=== PATIENT | male | born 1955 | race Caucasian/White ===

== ENCOUNTER → 2020-12-16 09:52 | Outpatient (CLI) | payer OTHER, SELFPAY ==
--- NOTE | 2020-12-16 09:56 | DI.RAD.S_ITS ---
PROCEDURE: XR CERVICAL SPINE 4V OR 5V INDICATIONS: UPDATE IMAGING TECHNIQUE: 5 views of the cervical spine acquired. COMPARISON: None. FINDINGS: Bones: No fractures or dislocations to the C7 level. Oblique images demonstrate no bony foraminal stenoses. There are multilevel degenerative changes. C4-5, C5-6, and C6-7 have anterior osteophytes and foraminal narrowing on oblique views. Soft tissues: No prevertebral soft tissue swelling. IMPRESSION: Degenerative changes with disc disease at C4-5, C5-6, and C6-7. Dictated by: Efe Lugo M.D. on 12/16/2020 at 11:01 Approved by: Efe Lugo M.D. on 12/16/2020 at 11:04
== END ==
PROVIDERS: PCP Family Medicine; Referring Provider Physical Medicine & Rehabilitation; Visit Provider Physical Medicine & Rehabilitation
DX: M54.2 Cervicalgia (principal); M47.812 Spondylosis without myelopathy or radiculopathy, cervical region; M47.26 Other spondylosis with radiculopathy, lumbar region; Z87.828 Personal history of other (healed) physical injury and trauma
CPT/HCPCS: 72050; 99215

== ENCOUNTER → 2021-01-03 15:42 | Outpatient (CLI) | payer OTHER, SELFPAY ==
--- NOTE | 2021-01-03 15:43 | DI.MRI.S_ITS ---
PROCEDURE: MR CERVICAL SPINE WO CON INDICATIONS: Neck pain TECHNIQUE: Noncontrast sagittal T1 spin echo and T2 fast spin echo, sagittal STIR, foraminal oblique sagittal T2 fast spin echo, and axial gradient echo or T2 fast spin echo through the cervical spine. COMPARISON: None. FINDINGS: Image quality: Excellent. Alignment and Curvature: There is loss of normal cervical lordosis. There is mild, grade 1 retrolisthesis of C3 on C4, C4 on C5, and C5 on C6. Bone Marrow: Marrow demonstrates normal overall signal. There is mild reactive signal within the endplates adjacent to the C2-C3, C3-C4, C4-C5, C5-C6, and C6-C7 intervertebral discs. Spinal Cord: Visualized spinal cord has normal size and signal. No cerebellar tonsillar herniation. Paraspinous Soft Tissues: No paravertebral masses. Prevertebral soft tissues are normal in thickness. C2-C3: Moderate disc desiccation. Mild diffuse disc bulge. Mild facet and uncovertebral hypertrophy. Mild canal stenosis. Mild bilateral foraminal stenosis. C3-C4: Moderate disc height loss and desiccation. Congenital canal stenosis. Mild diffuse disc bulge with superimposed broad-based left paracentral and posterolateral protrusion. Mild facet and uncovertebral hypertrophy bilaterally. Severe canal stenosis. Mild cord flattening. Moderate right and severe left foraminal stenosis. Left C4 nerve root compression. C4-C5: Congenital canal stenosis. Moderate disc height loss and desiccation. Moderate diffuse disc bulge with superimposed central protrusion. Moderate facet and uncovertebral hypertrophy bilaterally. Severe canal stenosis. Mild cord flattening. Severe bilateral foraminal stenosis with bilateral C5 nerve root compression. C5-C6: Moderate disc height loss and desiccation. Mild diffuse disc bulge. Congenital canal stenosis. Moderate facet and uncovertebral hypertrophy bilaterally. Moderate to severe canal stenosis. Minimal anterior cord flattening. Moderate left and severe right foraminal stenosis. Right C6 nerve root compression. C6-C7: Moderate disc height loss and desiccation. Mild diffuse disc bulge with superimposed broad-based left posterolateral broad-based protrusion. Mild facet and uncovertebral hypertrophy bilaterally. Moderate canal stenosis. Severe left and mild right foraminal stenosis. Left C7 nerve root compression. C7-T1: Mild disc height loss and desiccation. Mild facet and uncovertebral hypertrophy. No significant canal, or foraminal stenosis. IMPRESSION: 1. Diffuse congenital canal stenosis with superimposed disc and facet disease, as well as uncovertebral hypertrophy. 2. Multilevel canal stenoses, worst at C3-C4, C4-C5, and C5-C6, where there is associated cord flattening. 3. Multilevel foraminal stenoses, worst at C3-C4, C4-C5, C5-C6, and C6-C7 where there is associated intraforaminal nerve root compression. Recommend correlation with clinical symptoms to ascertain relevance of these findings. Dictated by: Avery Morris M.D. on 01/03/2021 at 16:59 Approved by: Avery Morris M.D. on 01/03/2021 at 17:03
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
== END ==
PROVIDERS: PCP Family Medicine; Referring Provider Physical Medicine & Rehabilitation; Visit Provider Physical Medicine & Rehabilitation
DX: M48.02 Spinal stenosis, cervical region (principal); M50.11 Cervical disc disorder with radiculopathy, high cervical region; M51.16 Intervertebral disc disorders with radiculopathy, lumbar region; M48.061 Spinal stenosis, lumbar region without neurogenic claudication; E88.2 Lipomatosis, not elsewhere classified
CPT/HCPCS: 72141; 72148

== ENCOUNTER → 2021-02-24 14:03 | Outpatient (CLI) | payer OTHER, SELFPAY ==
[2021-02-24 16:34] LABS: COVID19 -Nasal RAPID Negative (Negative)
== END ==
PROVIDERS: PCP Family Medicine; Visit Provider Physical Medicine & Rehabilitation
DX: Z20.822 Contact with and (suspected) exposure to COVID-19 (principal)
CPT/HCPCS: 87635; C9803

== ENCOUNTER 2021-02-25 14:45 | Outpatient (CLI) | payer OTHER, SELFPAY ==
[2021-02-25] VITALS (8 sets, daily range): BP systolic 94–164; BP diastolic 61–101; PULSE 80–98; RESP 12–18; TEMP 36.8; O2SAT 97–100
--- NOTE | 2021-02-25 14:46 | DI.RAD.S_ITS ---
PROCEDURE: PAIN L/S TRANSFORAMINAL INJECT INDICATIONS: SPONDYLOSIS COMPARISON: [facility], MR, MR LUMBAR SPINE WO CON, 01/03/2021, 16:20. FINDINGS: Fluoroscopic spot filming was performed to verify placement of spinal needles at the right L2-L3 level(s), as labeled on the films. Appropriate location(s) of the needle tip(s) was confirmed by injection of iodinated contrast. IMPRESSION: Intraprocedural examination within normal limits. Dictated by: Tulio Jesus M.D. on 02/25/2021 at 14:52 Approved by: Tulio Jesus M.D. on 02/25/2021 at 14:52
[2021-02-25] MEDS: fentaNYL 100 MCG/2 ML INJ 50 MCG IV (15:30)
[2021-02-25] MEDS: MIDAZOLAM 5 MG/5 ML VIAL IV (15:33)
[2021-02-25] MEDS: BETAMETHASONE 30 MG/5 ML MDV 6 MG INJ (15:34)
[2021-02-25] MEDS: DEXAMETHASONE 10 MG/ML VIAL 20 MG INJ (15:34)
[2021-02-25] MEDS: IOPAMIDOL 15 ML VIAL 3 ML INJ (15:35)
[2021-02-25] MEDS: BUPIVACAINE 0.25% (PF) VIAL 2 ML INJ (15:35)
--- NOTE | 2021-02-25 15:43 | P.PCN_ITS ---
Date/Time/Diagnoses Date of procedure: 02/25/21 Time of procedure: 15:43 Pre-procedure diagnosis: 1. FORAMINAL STENOSIS WITH LE SYMPTOMS Post-procedure diagnosis: same Procedure Notes Procedure: 1. FLUOROSCOPICALLY GUIDED CONTRAST CONTROLLED TRANSFORAMINAL EPIDURAL STEROID INJECTION - RIGHT L2/3 TFESI Indications: Camilo is referred by Dr. Arora for treatment of Foraminal Stenosis with right LE Symptoms Physician: Chavo Cisneros Total Fluoroscopy time (seconds): 7 Total sedation minutes: 11 Complications: none Procedure in detail & Post-procedure care: FINDINGS Foraminal Nerve Root Compression secondary to disc disease and facet hypertrophy DESCRIPTION OF PROCEDURE Following review of allergy and review of potential side effects and complications, including, but not necessarily limited to, infection, allergic reaction, local tissue breakdown, stroke, temporary or permanent nerve injury, paralysis, and possible , the patient indicated that the patient understood and agreed to proceed. An informed consent document was signed by the patient, witnessed by a nurse, and placed in the patient's chart. Additionally, other treatment options including medications, modalities, and physical therapy were reviewed with the patient. After review of previous anaesthesic history and IV conscious sedation the patient was deemed safe to proceed with today?s procedure with IV conscious sedation as ASA class II designation. Safety time-out was performed to confirm patient ID, procedure to be performed and site of procedure. IV sedation was accomplished with a combination of 3mg of Versed and 50mcg of Fentanyl was administered by the RN after DO order, titrated to patient comfort during the course of the procedure while the patient remained responsive to all verbal commands In the prone position following sterile prep and drape of the lumbar region, the right L2/3 posterior neuroforamen was identified fluoroscopically. The skin was anesthetized via a 25-gauge 1.5-inch needle with 1% lidocaine solution. At this point, a 25-gauge 3.5-inch spinal needle was atraumatically introduced and advanced under fluoroscopic guidance through the posterior right L2/3 ne uroforamen to approximately the anterior aspect of the canal. Depth was confirmed on lateral view. Following negative aspiration, injection of approximately 1.5 cc of Isovue 200 under live fluoroscopy in the AP view confirmed excellent flow along the nerve root, into the epidural space without vascular or intrathecal uptake observed Radiological data, including multiple fluoroscopic views of the lumbosacral spine, reveal a spinal needle at the right L2/3 posterior neuroforamen. Subsequent views show flow of contrast material flowing superiorly and inferiorly along the nerve root confirming epidural flow. Subsequently, a test dose of 1.5 cc of 1% lidocaine solution was administered and patient was observed for two minutes for signs or symptoms of complications, including abdominal pain, shortness of breath, bilateral upper or lower extremity weakness, nausea and vomiting, prior to steroid injection. At this point, a total of 3cc or 20mg of dexamethasone and 6mg of betamethasone was injected without incident. The patient tolerated the procedure well without signs or symptoms of complications prior to transfer to the recovery area continued monitoring without incident. The patient was then transferred to the recovery area where they were observed for an appropriate time after the injection. The patient reported a VAS score of 7 prior to the procedure and a post-procedure VAS of 0. POST OP INSTRUCTIONS The patient was provided a Pain Log to continue to record their response to the target-specific procedure prior to follow-up visit with their referring physician. Additionally, specific post-injection care instructions and a contact number to our office were provided if concerns arise regarding possible complications associated with the procedure are suspected.
== END 2021-02-25 16:07 | disposition home or self-care (01) ==
LOC: RAD 14:46
PROVIDERS: PCP Family Medicine; Referring Provider Physical Medicine & Rehabilitation; Visit Provider Physical Medicine & Rehabilitation
DX: M48.061 Spinal stenosis, lumbar region without neurogenic claudication (principal); M51.16 Intervertebral disc disorders with radiculopathy, lumbar region
CPT/HCPCS: 64483; 99152; J0702; J1100; J2250; J3010

== ENCOUNTER → 2021-03-31 12:36 | Outpatient (CLI) | payer OTHER, SELFPAY ==
--- NOTE | 2021-03-31 12:37 | DI.RAD.S_ITS ---
PROCEDURE: XR LUMBAR SPINE MIN 4V INDICATIONS: BACK PAIN TECHNIQUE: 5 views of the lumbar spine were acquired, including bilateral oblique views. COMPARISON: None. FINDINGS: Bones: No fracture. Multilevel spondylosis/endplate changes. Diffuse facet arthropathy. Moderate narrowing of the L5-S1 disc space. Remaining disc spaces appear preserved. Partially visualized mild lateral curvature of the spine. Soft tissues: Scattered vascular calcifications in the aorta. Oblique images: No pars defects. IMPRESSION: Lumbar spondylosis most pronounced at L5-S1. Dictated by: Abraham Colorado M.D. on 03/31/2021 at 13:27 Approved by: Abraham Colorado M.D. on 03/31/2021 at 13:29
== END ==
PROVIDERS: PCP Family Medicine; Referring Provider Physical Medicine & Rehabilitation; Visit Provider Physical Medicine & Rehabilitation
DX: M47.27 Other spondylosis with radiculopathy, lumbosacral region (principal); M51.16 Intervertebral disc disorders with radiculopathy, lumbar region; Z87.828 Personal history of other (healed) physical injury and trauma
CPT/HCPCS: 72110; 99214

== ENCOUNTER → 2021-04-28 11:37 | Outpatient (CLI) | payer OTHER, SELFPAY ==
[2021-04-28 13:57] LABS: COVID19 -Nasal RAPID Negative (Negative)
== END ==
PROVIDERS: PCP Family Medicine; Visit Provider Student in an Organized Health Care Education/Training Program
DX: Z01.812 Encounter for preprocedural laboratory examination (principal); Z20.822 Contact with and (suspected) exposure to COVID-19
CPT/HCPCS: 87635; C9803

== ENCOUNTER 2021-04-29 09:34 | Outpatient (CLI) | payer OTHER, SELFPAY ==
[2021-04-29] VITALS (9 sets, daily range): BP systolic 138–162; BP diastolic 72–101; PULSE 78–103; RESP 12–21; TEMP 36.6; O2SAT 97–100
--- NOTE | 2021-04-29 09:35 | DI.RAD.S_ITS ---
PROCEDURE: PAIN C/T INTERLAMINAR INJECT INDICATIONS: SPINAL STENOSIS COMPARISON: [facility], , PAIN L/S TRANSFORAMINAL INJECT, 02/25/2021, 15:35. FINDINGS: Fluoroscopic spot filming was performed to verify placement of a spinal needle at the C6-C7 level, as labeled on the films. Appropriate location of the needle tip was confirmed by injection of iodinated contrast. IMPRESSION: No significant intraprocedural abnormality. Dictated by: Tulio Jesus M.D. on 04/29/2021 at 10:29 Approved by: Tulio Jesus M.D. on 04/29/2021 at 10:29
[2021-04-29] MEDS: MIDAZOLAM 5 MG/5 ML VIAL IV (09:50)
[2021-04-29] MEDS: fentaNYL 100 MCG/2 ML INJ 50 MCG IV (09:50)
[2021-04-29] MEDS: IOPAMIDOL 15 ML VIAL 3 ML INJ (09:58)
[2021-04-29] MEDS: DEXAMETHASONE 10 MG/ML VIAL 30 MG INJ (09:58)
[2021-04-29] MEDS: BUPIVACAINE 0.25% (PF) VIAL 2 ML INJ (09:58)
--- NOTE | 2021-04-29 10:08 | P.PCN_ITS ---
Date/Time/Diagnoses Date of procedure: 04/29/21 Time of procedure: 10:08 Pre-procedure diagnosis: 1. CERVICAL STENOSIS, 2. CERVICAL HNP WITH UPPER EXTREMITY RADICULAR FEATURES Post-procedure diagnosis: same Procedure Notes Procedure: 1. FLUORSCOPICALLY GUIDED CONTRAST CONTROLLED INTERLAMINAR EPIDURAL STEROID INJECTION - C6/7 TL KAHLIL Indications: Camilo is referred for treatment of Cervical HNP with Upper Extremity Paresthesias. Physician: Chavo Cisneros Total Fluoroscopy time (seconds): 27 Total sedation minutes: 15 Complications: none Procedure in detail & Post-procedure care: FINDINGS Cervical Stenosis due to disc deterioration and nerve root irritation and nerve root irritation DESCRIPTION OF PROCEDURE Fluoroscopically guided, contrast-controlled C6/7 translaminar epidural steroid injection with conscious sedation. Following review of allergy and review of potential side effects and complications, including, but not necessarily limited to, infection, allergic r eaction, local tissue breakdown, temporary as well as permanent nerve injury, stroke, paralysis, and possible , the patient indicated that patient understood and agreed to proceed. An informed consent document was signed by the patient, witnessed by a nurse, and placed in the patient's chart. Additionally, other treatment options including modalities, medications, and physical therapy were reviewed with the patient. After review of previous anaesthesic history and IV conscious sedation the patient was deemed safe to proceed with today?s procedure with IV conscious sedation as ASA class II designation. Safety time-out was performed to confirm patient ID, procedure to be performed and site of procedure. IV sedation was accomplished with a combination of 3mg of Versed and 50mcg of Fentanyl administered by the RN after DO order, titrated to patient comfort during the course of the procedure while the patient remained responsive to all verbal commands. In the prone position, following sterile prep and drape of the cervical region, the C6/7 translaminar space was identified fluoroscopically. The skin was anesthetized via a 25-gauge 1.5-inch needle with 1% lidocaine solution. At this point, a 25-gauge, 2.5-inch short bevel spinal needle was atraumatically introduced and advanced under fluoroscopic guidance into epidural space at the C6/7 translaminar space. Depth was confirmed on lateral view. Radiological data, including multiple fluoroscopic views of the cervical spine, reveal a spinal needle at the C6/7 translaminar space. Lateral views then show placement of the needle in the epidural space. Subsequent views show contrast material flowing superiorly and inferiorly in the epidural space. DSA fluoroscopy with live contrast injection, once again, confirmed no vascular or intrathecal uptake. At this point, using loss of resistance technique with saline and air, the epidural space was entered. Following negative aspiration, injection of approximately 1.5 cc of Isovue-200 with live fluoroscopy in the AP view confirmed epidural flow in the epidural space without vascular or intrathecal uptake observed. Subsequently, a test dose of 1 cc of 1% lidocaine solution was injected and patient was observed for two minutes without signs or symptoms of complications, including abdominal pain, shortness of breath, bilateral upper or lower extremity weakness, nausea and vomiting, prior to steroid injection. At this point, 3cc or 30mg of dexamethasone was then injected without incident. The patient tolerated the procedure well without signs or symptoms of complications prior to being transferred to the recovery area for further monitoring, The patient was then transferred to the recovery area where they were observed for an appropriate period of time after the injection. The patient reported a VAS score of 6 prior to the procedure and a post-procedure VAS of 0. POST OP INSTRUCTIONS The patient was provided a Pain Log to continue to record their response to the target-specific procedure prior to follow-up visit with the referring provider. Additionally, specific post-injection care instructions and a contact number to our office were provided if concerns arise regarding possible complications associated with the procedure are suspected.
== END 2021-04-29 10:22 | disposition home or self-care (01) ==
PROVIDERS: Referring Provider Physical Medicine & Rehabilitation; Visit Provider Physical Medicine & Rehabilitation
DX: M54.12 Radiculopathy, cervical region (principal); M48.02 Spinal stenosis, cervical region
CPT/HCPCS: 62321; 99152; J1100; J2250; J3010

== ENCOUNTER → 2021-07-29 16:20 | Outpatient (CLI) | payer OTHER, SELFPAY ==
[2021-07-29 16:54] LABS: COVID19 -Nasal RAPID Negative (Negative)
== END ==
PROVIDERS: Visit Provider Physical Medicine & Rehabilitation
DX: Z20.822 Contact with and (suspected) exposure to COVID-19 (principal)
CPT/HCPCS: 87635; C9803

== ENCOUNTER 2021-07-31 08:44 | Outpatient (CLI) | payer OTHER, SELFPAY ==
[2021-07-31] VITALS (8 sets, daily range): BP systolic 141–169; BP diastolic 68–111; PULSE 58–95; RESP 10–21; TEMP 36.8–36.9; O2SAT 98–100
--- NOTE | 2021-07-31 08:44 | DI.RAD.S_ITS ---
PROCEDURE: PAIN C/T INTERLAMINAR INJECT INDICATIONS: SPINAL STENOSIS COMPARISON: [facility], , PAIN C/T INTERLAMINAR INJECT, 04/29/2021, 9:58. FINDINGS: Fluoroscopic spot filming was performed to verify placement of a spinal needle at the C6-C7 level, as labeled on the films. Appropriate location of the needle tip was confirmed by injection of iodinated contrast. IMPRESSION: No significant intraprocedural abnormality. Dictated by: Tulio Jesus M.D. on 07/31/2021 at 9:20 Approved by: Tulio Jesus M.D. on 07/31/2021 at 9:20
[2021-07-31] MEDS: fentaNYL 100 MCG/2 ML INJ 50 MCG IV (09:47)
[2021-07-31] MEDS: MIDAZOLAM 5 MG/5 ML VIAL IV (09:47)
[2021-07-31] MEDS: BUPIVACAINE 0.25% (PF) VIAL 2 ML INJ (09:50)
[2021-07-31] MEDS: DEXAMETHASONE 10 MG/ML VIAL 30 MG INJ (09:50)
[2021-07-31] MEDS: IOPAMIDOL 15 ML VIAL 3 ML INJ (09:50)
--- NOTE | 2021-07-31 10:02 | PM.PROC.IR.1 ---
Date/Time/Diagnoses Date of procedure: 07/31/21 Time of procedure: 10:02 Pre-procedure diagnosis: 1. CERVICAL STENOSIS, 2. CERVICAL HNP WITH UPPER EXTREMITY RADICULAR FEATURES Post-procedure diagnosis: same Procedure Notes Procedure: 1. FLUORSCOPICALLY GUIDED CONTRAST CONTROLLED INTERLAMINAR EPIDURAL STEROID INJECTION - C6/7 TL KAHLIL Indications: Camilo is referred for treatment of Cervical HNP with Upper Extremity Paresthesias. Physician: Chavo Cisneros Total Fluoroscopy time (seconds): 27 Total sedation minutes: 12 Complications: none Procedure in detail & Post-procedure care: FINDINGS Cervical Stenosis due to disc deterioration and nerve root irritation and nerve root irritation DESCRIPTION OF PROCEDURE Fluoroscopically guided, contrast-controlled C6/7 translaminar epidural steroid injection with conscious sedation. Following review of allergy and review of potential side effects and complications, including, but not necessarily limited to, infection, allergic reaction, local tissue breakdown, temporary as well as permanent nerve injury, stroke, paralysis, and possible , the patient indicated that patient understood and agreed to proceed. An informed consent document was signed by the patient, witnessed by a nurse, and placed in the patient's chart. Additionally, other treatment options including modalities, medications, and physical therapy were reviewed with the patient. After review of previous anaesthesic history and IV conscious sedation the patient was deemed safe to proceed with today?s procedure with IV conscious sedation as ASA class II designation. Safety time-out was performed to confirm patient ID, procedure to be performed and site of procedure. IV sedation was accomplished with a combination of 3mg of Versed and 50mcg of Fentanyl administered by the RN after DO order, titrated to patient comfort during the course of the procedure while the patient remained responsive to all verbal commands. In the prone position, following sterile prep and drape of the cervical region, the C6/7 translaminar space was identified fluoroscopically. The skin was anesthetized via a 25-gauge 1.5-inch needle with 1% lidocaine solution. At this point, a 25-gauge, 2.5-inch short bevel spinal needle was atraumatically introduced and advanced under fluoroscopic guidance into epidural space at the C6/7 translaminar space. Depth was confirmed on lateral view. Radiological data, including multiple fluoroscopic views of the cervical spine, reveal a spinal needle at the C6/7 translaminar space. Lateral views then show placement of the needle in the epidural space. Subsequent views show contrast material flowing superiorly and inferiorly in the epidural space. DSA fluoroscopy with live contrast injection, once again, confirmed no vascular or intrathecal uptake. At this point, using loss of resistance technique with saline and air, the epidural space was entered. Following negative aspiration, injection of approximately 1.5 cc of Isovue-200 with live fluoroscopy in the AP view confirmed epidural flow in the epidural space without vascular or intrathecal uptake observed. Subsequently, a test dose of 1 cc of 1% lidocaine solution was injected and patient was observed for two minutes without signs or symptoms of complications, including abdominal pain, shortness of breath, bilateral upper or lower extremity weakness, nausea and vomiting, prior to steroid injection. At this point, 3cc or 30mg of dexamethasone was then injected without incident. The patient tolerated the procedure well without signs or symptoms of complications prior to being transferred to the recovery area for further monitoring, The patient was then transferred to the recovery area where they were observed for an appropriate period of time after the injection. The patient reported a VAS score of 6 prior to the procedure and a post-procedure VAS of 0. POST OP INSTRUCTIONS The patient was provided a Pain Log to continue to record their response to the target-specific procedure prior to follow-up visit with the referring provider. Additionally, specific post-injection care instructions and a contact number to our office were provided if concerns arise regarding possible complications associated with the procedure are suspected.
== END 2021-07-31 10:20 | disposition home or self-care (01) ==
LOC: RAD 08:44
PROVIDERS: Referring Provider Physical Medicine & Rehabilitation; Visit Provider Physical Medicine & Rehabilitation
DX: M48.02 Spinal stenosis, cervical region (principal); M50.123 Cervical disc disorder at C6-C7 level with radiculopathy
CPT/HCPCS: 62321; 99152; J1100; J2250; J3010

== ENCOUNTER 2022-09-24 09:25 | Outpatient (CLI) | payer OTHER, SELFPAY ==
[2022-09-24] VITALS (8 sets, daily range): BP systolic 136–151; BP diastolic 80–100; PULSE 72–99; RESP 14–22; TEMP 36.1; O2SAT 97–100
--- NOTE | 2022-09-24 10:00 | DI.RAD.S_ITS ---
PROCEDURE: PAIN C/T INTERLAMINAR INJECT INDICATIONS: SPINAL STENOSIS COMPARISON: [facility], , PAIN C/T INTERLAMINAR INJECT, 07/31/2021, 9:52. FINDINGS: Fluoroscopic spot filming was performed to verify placement of spinal needles at the C6-7 level(s), as labeled on the films. Appropriate location(s) of the needle tip(s) was confirmed by injection of iodinated contrast. IMPRESSION: Intraoperative fluoroscopic views as above. Dictated by: Efe Lugo M.D. on 09/24/2022 at 11:03 Approved by: Efe Lugo M.D. on 09/24/2022 at 11:03
[2022-09-24] MEDS: IOPAMIDOL 15 ML VIAL 3 ML INJ (10:18)
[2022-09-24] MEDS: DEXAMETHASONE 10 MG/ML VIAL 30 MG INJ (10:18)
[2022-09-24] MEDS: BUPIVACAINE 0.25% (PF) VIAL 2 ML SUBCUT (10:19)
[2022-09-24] MEDS: MIDAZOLAM 2 MG/2 ML VIAL 4 MG IV (10:20)
--- NOTE | 2022-09-24 10:36 | P.PCN_ITS ---
Date/Time/Diagnoses Date of procedure: 09/24/22 Time of procedure: 10:37 Pre-procedure diagnosis: 1. CERVICAL STENOSIS, 2. CERVICAL HNP WITH UPPER EXTREMITY RADICULAR FEATURES Post-procedure diagnosis: same Procedure Notes Procedure: 1. FLUORSCOPICALLY GUIDED CONTRAST CONTROLLED INTERLAMINAR EPIDURAL STEROID INJECTION - C6/7 TL KAHLIL Indications: Camilo is referred by Dr. Arceo for treatment of Cervical HNP with Upper Extremity Paresthesias. Physician: Chavo Cisneros Total Fluoroscopy time (seconds): 38 Total sedation minutes: 16 Complications: none Procedure in detail & Post-procedure care: FINDINGS Cervical Stenosis due to disc deterioration and nerve root irritation and nerve root irritation DESCRIPTION OF PROCEDURE Fluoroscopically guided, contrast-controlled C6/7 translaminar epidural steroid injection with conscious sedation. Following review of allergy and review of potential side effects and complications, including, but not necessarily limited to, infection, allergic reaction, local tissue breakdown, temporary as well as permanent nerve injury, stroke, paralysis, and possible , the patient indicated that patient understood and agreed to proceed. An informed consent document was signed by the patient, witnessed by a nurse, and placed in the patient's chart. Additionally, other treatment options including modalities, medications, and physical therapy were reviewed with the patient. After review of previous anaesthesic history and IV conscious sedation the patient was deemed safe to proceed with today?s procedure with IV conscious randee tion as ASA class II designation. Safety time-out was performed to confirm patient ID, procedure to be performed and site of procedure. IV sedation was accomplished with a combination of 4mg of Versed administered by the RN after DO order, titrated to patient comfort during the course of the procedure while the patient remained responsive to all verbal commands. In the prone position, following sterile prep and drape of the cervical region, the C6/7 translaminar space was identified fluoroscopically. The skin was anesthetized via a 25-gauge 1.5-inch needle with 1% lidocaine solution. At this point, a 25-gauge, 2.5-inch short bevel spinal needle was atraumatically introduced and advanced under fluoroscopic guidance into epidural space at the C6/7 translaminar space. Depth was confirmed on lateral view. Radiological data, including multiple fluoroscopic views of the cervical spine, reveal a spinal needle at the C6/7 translaminar space. Lateral views then show placement of the needle in the epidural space. Subsequent views show contrast material flowing superiorly and inferiorly in the epidural space. DSA fluoroscopy with live contrast injection, once again, confirmed no vascular or intrathecal uptake. At this point, using loss of resistance technique with saline and air, the epidural space was entered. Following negative aspiration, injection of approximately 1.5 cc of Isovue-200 with live fluoroscopy in the AP view confirmed epidural flow in the epidural space without vascular or intrathecal uptake observed. Subsequently, a test dose of 1 cc of 1% lidocaine solution was injected and patient was observed for two minutes without signs or symptoms of complications, including abdominal pain, shortness of breath, bilateral upper or lower extremity weakness, nausea and vomiting, prior to steroid injection. At this point, 3cc or 30mg of dexamethasone was then injected without incident. The patient tolerated the procedure well without signs or symptoms of com plications prior to being transferred to the recovery area for further monitoring, The patient was then transferred to the recovery area where they were observed for an appropriate period of time after the injection. The patient reported a VAS score of 6 prior to the procedure and a post-procedure VAS of 0. POST OP INSTRUCTIONS The patient was provided a Pain Log to continue to record their response to the target-specific procedure prior to follow-up visit with the referring provider. Additionally, specific post-injection care instructions and a contact number to our office were provided if concerns arise regarding possible complications associated with the procedure are suspected.
== END 2022-09-24 10:50 | disposition home or self-care (01) ==
LOC: RAD 09:25
PROVIDERS: PCP Family Medicine; Referring Provider Physical Medicine & Rehabilitation; Visit Provider Physical Medicine & Rehabilitation
DX: M48.02 Spinal stenosis, cervical region (principal); M50.123 Cervical disc disorder at C6-C7 level with radiculopathy
CPT/HCPCS: 62321; 99152; J1100; J2250; J3490